=== PATIENT | female | born 1980 | race Caucasian/White ===

== ENCOUNTER → 2024-09-30 07:29 | Outpatient (REF) | payer OTHER, SELFPAY | LOC: HWRAD 07:29 | PROVIDERS: ATTENDING PHYSICIAN Otolaryngology; FAMILY PHYSICIAN Family Medicine | DX: J32.0 Chronic maxillary sinusitis (principal) | CPT/HCPCS: 70486 ==

== ENCOUNTER → 2025-05-23 09:35 | Outpatient (REF) | payer BC, SELFPAY | LOC: WDC 09:35 | PROVIDERS: ATTENDING PHYSICIAN Obstetrics & Gynecology; FAMILY PHYSICIAN Family Medicine | DX: N64.4 Mastodynia (principal) | CPT/HCPCS: 76642; 77062; 77066 ==

== ENCOUNTER 2025-11-01 06:21 | Day surgery (SDC) | payer SELFPAY, BC ==
[2025-11-01] VITALS (8 sets, daily range): BP systolic 106–128; BP diastolic 56–71; BMI 25.0
[2025-11-01] MEDS: NORMOSOL-R/PLASMALYTE-A 1000 IV (12:58)
[2025-11-01] MEDS: TYLENOL 1000 MG PO (12:59)
--- NOTE | 2025-11-01 18:36 | SUR.PHASEI ---
REc'd unresponsive with oral airway in place, claritza well
--- NOTE | 2025-11-01 18:49 | SUR.PHASEI ---
airway out claritza well, briefly awakens oriented x 3 by RN, reassured, denies c/o
--- NOTE | 2025-11-01 19:20 | SUR.PHASEI ---
More alert, arouses easily , repositioned states 'Oh! I'm a little dizzy' reassured, encouraged to sleep
--- NOTE | 2025-11-01 19:32 | SUR.PHASEI ---
Dozing, some dizziness persists, encouraged to sleep claritza well, vss
== END 2025-11-01 18:33 | disposition home or self-care (01) ==
LOC: SDS 06:21
PROVIDERS: ATTENDING PHYSICIAN Otolaryngology; OTHER PHYSICIAN Otolaryngology
DX: Z41.1 Encounter for cosmetic surgery (principal); J34.2 Deviated nasal septum; J34.3 Hypertrophy of nasal turbinates; J34.89 Other specified disorders of nose and nasal sinuses
CPT/HCPCS: 30420; 30140; 31240